=== PATIENT | female | born 1950 | race Caucasian/White ===

== ENCOUNTER 2020-01-12 14:57 | Emergency (ER) | payer OTHER ==
[~2020-01-12] VITALS: Ht 152.4 cm; Wt 108.9 kg
[2020-01-12 15:16] VITALS: Ht 152.4 cm; Wt 108.9 kg
[2020-01-12 17:21] VITALS: BP 143/84
== END 2020-01-12 17:21 | disposition home or self-care (01) ==
LOC: ED 14:57
DX: J02.9 Acute pharyngitis, unspecified (principal); I10 Essential (primary) hypertension; Z88.6 Allergy status to analgesic agent